=== PATIENT | male | born 1960 | race African-American/Black ===

== ENCOUNTER 2017-07-23 02:41 | Inpatient (IN) | payer MEDICAID ==
[~2017-07-23] VITALS: Ht 175.3 cm; Wt 98.6 kg
[~2017-07-23 02:41] MED LIST: ATOR20TA65 PO; BENA20TA3 PO; CLON0.2T PO; CLOP75TA16 PO; NIFE30TA8 PO
[2017-07-23] MEDS ORDERED: SODIUM CHLORIDE 0.9% 500 ML IV ONE (06:54)
[2017-07-23 07:35] LABS: BASOPHILS % 0.5 % (0.0-2.0); EOSINOPHILS % 0.7 % (0.0-5.0); HEMATOCRIT. 39.9 % (42.0-52.0); HEMOGLOBIN. 13.8 g/dL (14.0-18.0); LYMPHOCYTES % 27.7 % (20.0-50.0); MEAN CORPUSCULAR HEMOGLOBIN 31.7 pg (28.0-32.0); MEAN CORPUSCULAR VOLUME 91.4 fL (80.0-94.0); MEAN PLATELET VOLUME 7.9 fl (7.4-10.4); MONOCYTES % 8.9 % (2.0-8.0); NEUTROPHILS % 62.2 % (40.0-76.0); PLATELET 293 x1000/uL (130-400); PROTHROMBIN TIME 10.7 sec (9.4-11.6); RED BLOOD CELL COUNT 4.36 mill/uL (4.7-6.1); RED CELL DISTRIBUTION WIDTH 13.3 % (11.6-14.6)
[2017-07-23 07:37] LABS: CARBON DIOXIDE 30 mEq/L (21-32); CHLORIDE 107 mEq/L (98-107)
[2017-07-23 07:44] LABS: ETHANOL BLOOD < 10 mg/dL; TROPONIN I < 0.02 ng/mL (0.00-0.04)
[2017-07-23] MEDS ORDERED: ASPIRIN 325MG TABLET PO ONE (08:30)
[2017-07-23 09:57] LABS: GLUCOSE URINE NEGATIVE (NEGATIVE); KETONES URINE NEGATIVE (NEGATIVE); LEUKOCYTE ESTERASE URINE NEGATIVE (NEGATIVE); NITRITE URINE NEGATIVE (NEGATIVE); OCCULT BLOOD URINE NEGATIVE (NEGATIVE); PROTEIN URINE NEGATIVE (NEGATIVE); SPECIFIC GRAVITY URINE 1.007 (1.005-1.030); UROBILINOGEN URINE 0.2 E.U./dL (0.2-1.0)
[2017-07-23 10:03] LABS: CLARITY URINE CLEAR (CLEAR); COLOR URINE YELLOW (YELLOW)
[2017-07-23 10:05] LABS: *AMPHETAMINES SCREEN URINE NEGATIVE (NEGATIVE); *BARBITURATES SCREEN URINE NEGATIVE (NEGATIVE); *BENZODIAZEPINES SCREEN URINE NEGATIVE (NEGATIVE); *COCAINE SCREEN URINE NEGATIVE (NEGATIVE); CANNABINOID URINE SCREEN NEGATIVE (NEGATIVE); METHADONE URINE SCREEN NEGATIVE (NEGATIVE); OPIATES URINE SCREEN NEGATIVE (NEGATIVE); PHENCYCLIDINE URINE SCREEN NEGATIVE (NEGATIVE)
[2017-07-23] MEDS ORDERED: CLONIDINE 0.2MG TABLET PO ONE (10:45)
[2017-07-23 12:17] VITALS: BP 170/104
[2017-07-23] MEDS ORDERED: BENA40TA3 PO (13:09)
[2017-07-23] MEDS ORDERED: EZET10TA26 PO (13:09)
[2017-07-23] MEDS ORDERED: NIFE60TA64 PO (13:09)
[2017-07-23] MEDS ORDERED: CHOL20004 PO (13:09)
[2017-07-23] MEDS ORDERED: FINA5TAB11 PO (13:09)
[2017-07-23] MEDS: NIFEDIPINE XL 60MG TAB PO SCH ×2 (14:42→22:19)
[2017-07-23] MEDS: CLOPIDOGREL 75MG TABLET PO SCH (14:42)
[2017-07-23] MEDS: FINASTERIDE 5MG TABLET PO SCH (14:43)
[2017-07-23] MEDS: BENAZEPRIL 20MG TABLET PO SCH (14:43)
[2017-07-23 16:00] VITALS: BP 141/91
[2017-07-23 18:00] VITALS: BP 141/84
[2017-07-23 20:00] VITALS: BP 147/90
[2017-07-23] MEDS ORDERED: ATORVASTATIN CALCIUM 20MG TABLET PO SCH (21:00)
[2017-07-23] MEDS ORDERED: EZETIMIBE 10MG TABLET PO SCH (21:00)
[2017-07-23] MEDS: CLONIDINE 0.2MG TABLET PO SCH (21:45)
[2017-07-24] VITALS (12 sets, daily range): BP systolic 125–151; BP diastolic 50–96
[2017-07-24] MEDS: CLONIDINE 0.2MG TABLET PO SCH ×2 (06:33→12:16)
[2017-07-24] MEDS ORDERED: CHOLECALCIFEROL (D3) 1000 UNIT TABLET PO SCH (09:00)
[2017-07-24] MEDS ORDERED: MEDICATION NOT ON FORMULARY EA (Benazepril Hcl 1 TAB) PO SCH (09:00)
[2017-07-24] MEDS ORDERED: MEDICATION NOT ON FORMULARY EA (Cholecalciferol (Vitamin D) 1 CAP) PO SCH (09:00)
[2017-07-24] MEDS: CALCIUM CARBONATE 1250MG TABLET (500MG ELEMENTAL CALCIUM) PO SCH ×2 (09:35→17:51)
[2017-07-24] MEDS: CLOPIDOGREL 75MG TABLET PO SCH (09:35)
[2017-07-24] MEDS: BENAZEPRIL 20MG TABLET PO SCH (09:36)
[2017-07-24] MEDS: FINASTERIDE 5MG TABLET PO SCH (09:36)
[2017-07-24] MEDS: NIFEDIPINE XL 60MG TAB PO SCH (09:36)
[2017-07-24 13:08] LABS: BASOPHILS % 0.5 % (0.0-2.0); EOSINOPHILS % 1.6 % (0.0-5.0); HEMOGLOBIN. 13.5 g/dL (14.0-18.0); LYMPHOCYTES % 36.6 % (20.0-50.0); MEAN CORPUSCULAR HEMOGLOBIN 31.7 pg (28.0-32.0); MEAN CORPUSCULAR VOLUME 91.8 fL (80.0-94.0); MEAN PLATELET VOLUME 7.8 fl (7.4-10.4); MONOCYTES % 11.7 % (2.0-8.0); NEUTROPHILS % 49.6 % (40.0-76.0); PLATELET 287 x1000/uL (130-400); RED BLOOD CELL COUNT 4.25 mill/uL (4.7-6.1); RED CELL DISTRIBUTION WIDTH 13.4 % (11.6-14.6)
[2017-07-24 13:31] LABS: CARBON DIOXIDE 31 mEq/L (21-32); CHLORIDE 104 mEq/L (98-107)
[2017-07-24] MEDS ORDERED: LORAZEPAM 2MG/ML CPJ IV NR (15:30)
== END 2017-07-24 19:40 | disposition home or self-care (01) | DRG 58 ==
LOC: ER 02:41 → 5EST 08:40 → EDBEDREQ 08:46 → ENRESERV 10:43
PROVIDERS: ADMIT Family Medicine; ATTEND Family Medicine
DX: R20.0 Anesthesia of skin (principal); I10 Essential (primary) hypertension; E55.9 Vitamin D deficiency, unspecified; H54.0 Blindness, both eyes; N40.0 Benign prostatic hyperplasia without lower urinary tract symptoms; Z60.2 Problems related to living alone; E78.00 Pure hypercholesterolemia, unspecified; E78.5 Hyperlipidemia, unspecified; Z79.899 Other long term (current) drug therapy; Z85.51 Personal history of malignant neoplasm of bladder; Z86.73 Personal history of transient ischemic attack (TIA), and cerebral infarction without residual deficits
CPT/HCPCS: 36415; 70450; 70551; 71010; 80053; 80305; 81003; 84484; 85025; 85610; 93005; 96360; 96361; 99285; G0482; J2060; J7030

== ENCOUNTER 2018-01-17 12:17 | Emergency (ER) | payer MEDICAID ==
[~2018-01-17] VITALS: Ht 172.7 cm; Wt 94.0 kg
[~2018-01-17 12:17] MED LIST changes: -BENA20TA3 PO; +BENA40TA3 PO; +CHOL20004 PO; +EZET10TA26 PO; +FINA5TAB11 PO; -NIFE30TA8 PO; +NIFE60TA64 PO
[2018-01-17 16:34] VITALS: BP 128/85
== END 2018-01-17 16:38 | disposition home or self-care (01) ==
LOC: ER 12:17
DX: R05 Cough (principal); I10 Essential (primary) hypertension; E78.00 Pure hypercholesterolemia, unspecified; Z86.73 Personal history of transient ischemic attack (TIA), and cerebral infarction without residual deficits; Z85.9 Personal history of malignant neoplasm, unspecified; Z98.890 Other specified postprocedural states
CPT/HCPCS: 71045; 99283

== ENCOUNTER 2020-01-01 19:08 | Emergency (ER) | payer MEDICAID ==
[~2020-01-01] VITALS: Ht 172.7 cm; Wt 94.0 kg
[~2020-01-01 19:08] MED LIST changes: -BENA40TA3 PO; +BENA40TA9 PO; -CLOP75TA16 PO; +CLOP75TA4 PO; +NIFE-32 PO; -NIFE60TA64 PO
[2020-01-01 20:31] LABS: BASOPHILS % 0.6 % (0.0-2.0); EOSINOPHILS % 0.7 % (0.0-5.0); HEMATOCRIT. 41.4 % (42.0-52.0); HEMOGLOBIN. 14.9 g/dL (14.0-18.0); LYMPHOCYTES % 35.6 % (20.0-50.0); MEAN CORPUSCULAR HEMOGLOBIN 33.1 pg (28.0-32.0); MEAN CORPUSCULAR VOLUME 91.7 fL (80.0-94.0); MEAN PLATELET VOLUME 7.8 fl (7.4-10.4); MONOCYTES % 14.8 % (2.0-8.0); NEUTROPHILS % 48.3 % (40.0-76.0); PLATELET 342 x1000/uL (130-400); RED BLOOD CELL COUNT 4.52 mill/uL (4.7-6.1); RED CELL DISTRIBUTION WIDTH 13.5 % (11.6-14.6)
[2020-01-01 20:32] LABS: CHLORIDE 101 mEq/L (98-107)
[2020-01-01] MEDS ORDERED: METOPROLOL TARTRATE 50MG TABLET PO ONE (21:00)
[2020-01-01 22:31] VITALS: BP 133/85
== END 2020-01-01 22:33 | disposition home or self-care (01) ==
LOC: ER 19:08
DX: R00.2 Palpitations (principal); I10 Essential (primary) hypertension; R00.0 Tachycardia, unspecified; E78.00 Pure hypercholesterolemia, unspecified; Z98.890 Other specified postprocedural states; Z86.73 Personal history of transient ischemic attack (TIA), and cerebral infarction without residual deficits; Z79.899 Other long term (current) drug therapy
CPT/HCPCS: 36415; 71045; 80053; 83880; 84484; 85025; 85379; 93005; 99285

== ENCOUNTER 2022-07-30 17:17 | Inpatient (IN) | payer MEDICAID ==
[~2022-07-30] VITALS: Ht 172.7 cm; Wt 84.4 kg
[~2022-07-30 17:17] MED LIST changes: -BENA40TA9 PO; +BENA40TA91 PO; +CLOP-31 PO; -CLOP75TA4 PO
[2022-07-30 18:54] LABS: HEMATOCRIT. 29.3 % (42.0-52.0); HEMOGLOBIN. 10.4 g/dL (14.0-18.0); MEAN CORPUSCULAR HEMOGLOBIN 32.9 pg (28.0-32.0); MEAN CORPUSCULAR VOLUME 92.7 fL (80.0-94.0); MEAN PLATELET VOLUME 6.5 fl (7.4-10.4); PLATELET 334 x1000/uL (130-400); RED BLOOD CELL COUNT 3.16 mill/uL (4.7-6.1); RED CELL DISTRIBUTION WIDTH 12.4 % (11.6-14.6)
[2022-07-30 18:59] LABS: CHLORIDE 86 mEq/L (98-107)
[2022-07-30 19:48] LABS: PLATELET ESTIMATE NORMAL
[2022-07-30] MEDS ORDERED: DEXTROSE 50% WATER 50ML SYRINGE IV ONE (20:15)
[2022-07-30] MEDS ORDERED: SODIUM POLYSTYRENE SULFONATE 15 G/60 ML BOT PO ONE (20:15)
[2022-07-30] MEDS ORDERED: ALBUTEROL (0.083%) 2.5MG/3ML NEB HHN ONE (20:15)
[2022-07-30] MEDS ORDERED: CALCIUM CHLORIDE 1GM/10ML SYR IV ONE (20:15)
[2022-07-30] MEDS ORDERED: SODIUM BICARBONATE 8.4% 1 MEQ/ML 50ML SYR IV ONE (20:15)
[2022-07-30] MEDS ORDERED: INSULIN REGULAR (HUMULIN R) 300UNITS/3ML VIAL IV ONE (20:15)
[2022-07-30 22:53] LABS: CLARITY URINE CLEAR (CLEAR); COLOR URINE YELLOW (YELLOW); KETONES URINE NEGATIVE (NEGATIVE); LEUKOCYTE ESTERASE URINE NEGATIVE (NEGATIVE); NITRITE URINE NEGATIVE (NEGATIVE); OCCULT BLOOD URINE NEGATIVE (NEGATIVE); PROTEIN URINE NEGATIVE (NEGATIVE); SPECIFIC GRAVITY URINE 1.007 (1.005-1.030); UROBILINOGEN URINE 0.2 E.U./dL (0.2-1.0)
[2022-07-31 04:00] VITALS: BP 146/87
[2022-07-31 04:32] VITALS: BP 151/91
[2022-07-31] MEDS ORDERED: CARV25TA47 PO (05:09)
[2022-07-31 08:00] VITALS: BP 149/79
[2022-07-31] MEDS ORDERED: DIPHENHYDRAMINE 50MG/ML VIAL IV PRN (08:00)
[2022-07-31] MEDS ORDERED: CLONIDINE 0.1MG TABLET PO PRN (08:00)
[2022-07-31] MEDS ORDERED: ACETAMINOPHEN 325MG TABLET PO PRN (08:00)
[2022-07-31] MEDS ORDERED: ONDANSETRON HCL 4MG/2ML INJ IV PRN (08:00)
[2022-07-31] MEDS ORDERED: IPRATROPIUM/ALBUTEROL 0.5-3(2.5)MG/3ML NEB HHN PRN (08:00)
[2022-07-31] MEDS ORDERED: NIFEDIPINE XL 60MG TAB PO SCH (09:00)
[2022-07-31] MEDS ORDERED: BENAZEPRIL 10MG TABLET PO SCH (09:00)
[2022-07-31] MEDS: CHOLECALCIFEROL (D3) 1000 UNIT TABLET PO SCH (09:10)
[2022-07-31] MEDS: CLOPIDOGREL 75MG TABLET PO SCH (09:10)
[2022-07-31] MEDS: CARVEDILOL 12.5MG TABLET PO SCH (09:11)
[2022-07-31] MEDS: FINASTERIDE 5MG TABLET PO SCH (10:55)
[2022-07-31 12:09] LABS: CHLORIDE 91 mEq/L (98-107)
[2022-07-31 12:12] VITALS: BP 146/87
[2022-07-31] MEDS: SODIUM CHLORIDE 0.9% 1,000 ML IV SCH ×2 (12:28→20:52)
[2022-07-31] MEDS: CLONIDINE 0.1MG TABLET PO SCH ×2 (13:42→20:43)
[2022-07-31] MEDS ORDERED: CLONIDINE 0.2MG TABLET PO SCH (14:00)
[2022-07-31 16:00] VITALS: BP 115/70
[2022-07-31 16:26] LABS: CHLORIDE 91 mEq/L (98-107)
[2022-07-31 17:39] LABS: HDL CHOLESTEROL 56 mg/dL (40-59)
[2022-07-31 17:44] LABS: CREATINE KINASE 183 IU/L (39-308); LDL CHOLESTEROL 92 mg/dL (5-100)
[2022-07-31 20:00] VITALS: BP 110/85
[2022-07-31] MEDS: ATORVASTATIN CALCIUM 20MG TABLET PO SCH (20:51)
[2022-07-31] MEDS: EZETIMIBE 10MG TABLET PO SCH (20:52)
[2022-08-01] VITALS: BP 137/84
[2022-08-01 04:00] VITALS: BP 126/80
[2022-08-01] MEDS: CLONIDINE 0.1MG TABLET PO SCH ×3 (05:46→20:55)
[2022-08-01 08:00] VITALS: BP 148/86
[2022-08-01 08:03] LABS: BASOPHILS % 0.6 % (0.0-2.0); EOSINOPHILS % 1.9 % (0.0-5.0); HEMATOCRIT. 30.6 % (42.0-52.0); HEMOGLOBIN. 10.7 g/dL (14.0-18.0); LYMPHOCYTES % 28.3 % (20.0-50.0); MEAN CORPUSCULAR HEMOGLOBIN 32.6 pg (28.0-32.0); MEAN CORPUSCULAR VOLUME 93.2 fL (80.0-94.0); MEAN PLATELET VOLUME 6.3 fl (7.4-10.4); MONOCYTES % 14.5 % (2.0-8.0); NEUTROPHILS % 54.7 % (40.0-76.0); PLATELET 344 x1000/uL (130-400); RED BLOOD CELL COUNT 3.28 mill/uL (4.7-6.1); RED CELL DISTRIBUTION WIDTH 12.7 % (11.6-14.6)
[2022-08-01 08:25] LABS: CHLORIDE 96 mEq/L (98-107)
[2022-08-01] MEDS: FINASTERIDE 5MG TABLET PO SCH (09:16)
[2022-08-01] MEDS: CARVEDILOL 12.5MG TABLET PO SCH (09:17)
[2022-08-01] MEDS: CLOPIDOGREL 75MG TABLET PO SCH (09:17)
[2022-08-01] MEDS: SODIUM CHLORIDE 0.9% 1,000 ML IV SCH ×2 (09:17→20:56)
[2022-08-01] MEDS: CHOLECALCIFEROL (D3) 1000 UNIT TABLET PO SCH (09:17)
[2022-08-01 12:00] VITALS: BP 106/58
[2022-08-01 16:00] VITALS: BP 142/81
[2022-08-01 20:00] VITALS: BP 135/82
[2022-08-01] MEDS: ATORVASTATIN CALCIUM 20MG TABLET PO SCH (20:55)
[2022-08-01] MEDS: EZETIMIBE 10MG TABLET PO SCH (20:55)
[2022-08-02] VITALS: BP 135/68
[2022-08-02 04:00] VITALS: BP 129/70
[2022-08-02] MEDS: CLONIDINE 0.1MG TABLET PO SCH ×2 (06:43→20:48)
[2022-08-02 08:00] VITALS: BP 153/87
[2022-08-02] MEDS: FINASTERIDE 5MG TABLET PO SCH (08:55)
[2022-08-02] MEDS: CHOLECALCIFEROL (D3) 1000 UNIT TABLET PO SCH (08:55)
[2022-08-02] MEDS: CLOPIDOGREL 75MG TABLET PO SCH (08:55)
[2022-08-02] MEDS: CARVEDILOL 12.5MG TABLET PO SCH (08:56)
[2022-08-02] MEDS ORDERED: CARV12.545 MT (11:49)
[2022-08-02 12:00] VITALS: BP 134/83
[2022-08-02 16:00] VITALS: BP 128/77
[2022-08-02 20:00] VITALS: BP 130/90
[2022-08-02] MEDS: ATORVASTATIN CALCIUM 20MG TABLET PO SCH (20:47)
[2022-08-02] MEDS: EZETIMIBE 10MG TABLET PO SCH (20:47)
[2022-08-02] MEDS: SODIUM CHLORIDE 0.9% 1,000 ML IV SCH (20:48)
[2022-08-03] VITALS: BP 113/72
[2022-08-03 04:00] VITALS: BP 122/76
[2022-08-03] MEDS: CLONIDINE 0.1MG TABLET PO SCH (05:10)
[2022-08-03 06:45] LABS: CHLORIDE 105 mEq/L (98-107)
[2022-08-03 07:56] VITALS: BP 153/93
[2022-08-03] MEDS: CARVEDILOL 12.5MG TABLET PO SCH (08:14)
[2022-08-03] MEDS: FINASTERIDE 5MG TABLET PO SCH (08:15)
[2022-08-03] MEDS: CLOPIDOGREL 75MG TABLET PO SCH (08:15)
[2022-08-03] MEDS: CHOLECALCIFEROL (D3) 1000 UNIT TABLET PO SCH (08:15)
[2022-08-03 12:00] VITALS: BP 142/87
[2022-08-03 12:20] VITALS: BP 144/87
== END 2022-08-03 13:35 | disposition home or self-care (01) | DRG 426 ==
LOC: ER 17:17 → EDBEDREQ 22:50 → EDBEDREQTM 22:50 → MICUSO 23:51 → 7EST 07-31 03:24
PROVIDERS: ADMIT Internal Medicine; ATTEND Internal Medicine
DX: E87.1 Hypo-osmolality and hyponatremia (principal); N17.0 Acute kidney failure with tubular necrosis; E87.5 Hyperkalemia; E78.00 Pure hypercholesterolemia, unspecified; D72.819 Decreased white blood cell count, unspecified; D64.9 Anemia, unspecified; I10 Essential (primary) hypertension; E89.2 Postprocedural hypoparathyroidism; E78.5 Hyperlipidemia, unspecified; H54.8 Legal blindness, as defined in USA; T46.4X5A Adverse effect of angiotensin-converting-enzyme inhibitors, initial encounter; I25.10 Atherosclerotic heart disease of native coronary artery without angina pectoris; Z86.73 Personal history of transient ischemic attack (TIA), and cerebral infarction without residual deficits; Z79.899 Other long term (current) drug therapy; Z85.51 Personal history of malignant neoplasm of bladder; Y92.89 Other specified places as the place of occurrence of the external cause
CPT/HCPCS: 36415; 76770; 80048; 80053; 80061; 81003; 82533; 82550; 82962; 83930; 83935; 84295; 84443; 85025; 93005; 93970; 94644; 99291; C1893; J3490; J7030

== ENCOUNTER → 2023-04-15 | Emergency (ER) | payer MEDICAID ==
[~2023-04-15] VITALS: Ht 172.7 cm; Wt 87.0 kg
[~2023-04-15] MED LIST changes: -BENA40TA91 PO; +CARV12.545 MT; -NIFE-32 PO
[2023-04-15 18:25] VITALS: BP 185/104
[2023-04-15 18:42] LABS: HEMATOCRIT. 38.8 % (42.0-52.0); HEMOGLOBIN. 13.4 g/dL (14.0-18.0); MEAN CORPUSCULAR VOLUME 92.9 fL (80.0-94.0); MEAN PLATELET VOLUME 7.7 fl (7.4-10.4); PLATELET 357 x1000/uL (130-400); RED BLOOD CELL COUNT 4.18 mill/uL (4.7-6.1); RED CELL DISTRIBUTION WIDTH 13.2 % (11.6-14.6)
[2023-04-15 18:51] LABS: CHLORIDE 103 mEq/L (98-107)
[2023-04-15 20:06] LABS: CLARITY URINE CLEAR (CLEAR); COLOR URINE YELLOW (YELLOW); KETONES URINE NEGATIVE (NEGATIVE); LEUKOCYTE ESTERASE URINE TRACE (NEGATIVE); NITRITE URINE NEGATIVE (NEGATIVE); OCCULT BLOOD URINE NEGATIVE (NEGATIVE); PH URINE 6.5 (4.5-8.0); PROTEIN URINE NEGATIVE (NEGATIVE); SPECIFIC GRAVITY URINE 1.006 (1.005-1.030); UROBILINOGEN URINE 0.2 E.U./dL (0.2-1.0)
[2023-04-15 20:41] LABS: PLATELET ESTIMATE NORMAL
== END | disposition home or self-care (01) ==
LOC: ER 18:17
DX: I11.0 Hypertensive heart disease with heart failure (principal); I50.9 Heart failure, unspecified; R42 Dizziness and giddiness; E78.00 Pure hypercholesterolemia, unspecified; Z98.890 Other specified postprocedural states
CPT/HCPCS: 36415; 71045; 80053; 81003; 84484; 85025; 93005; 99285

== ENCOUNTER 2024-06-25 17:35 | Emergency (ER) | payer MEDICAID ==
[~2024-06-25] VITALS: Ht 172.7 cm; Wt 90.0 kg
[2024-06-25 17:57] VITALS: BP 181/103; PULSE 87; RESP 16; TEMP 98.7; O2SAT 100
[2024-06-25 18:26] LABS: CHLORIDE 104 mEq/L (98-107); POTASSIUM 3.8 mEq/L (3.5-5.1); SODIUM 138 mEq/L (136-145)
[2024-06-25 18:27] LABS: CARBON DIOXIDE 30 mEq/L (21-32)
[2024-06-25 18:28] LABS: CALCIUM 9.9 mg/dL (8.7-10.4)
[2024-06-25 18:32] LABS: CREATININE 1.2 mg/dL (0.6-1.3); GLUCOSE 161 mg/dL (70-105); UREA NITROGEN BLOOD 8 mg/dL (9-23)
== END 2024-06-25 21:23 | disposition home or self-care (01) ==
LOC: ER 17:35
DX: R20.2 Paresthesia of skin (principal); E78.00 Pure hypercholesterolemia, unspecified; I10 Essential (primary) hypertension; Z85.9 Personal history of malignant neoplasm, unspecified; Z86.73 Personal history of transient ischemic attack (TIA), and cerebral infarction without residual deficits; Z79.899 Other long term (current) drug therapy
CPT/HCPCS: 36415; 80048; 99283